=== PATIENT | female | born 2000 | race Two or more races ===

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

== ENCOUNTER 2019-04-27 01:44 | Emergency (ER) | payer MEDICAID ==
[~2019-04-27] VITALS: Ht 149.9 cm; Wt 92.1 kg
[~2019-04-27 01:44] MED LIST: CEPHALEXIN500 MG ORAL; DICLEGIS DR 101 EACH PO
[2019-04-27] MEDS ORDERED: Albuterol ud Inhalation HHN ONE (02:00)
[2019-04-27] MEDS ORDERED: PROMETHAZINE-C118 M1 ORAL (02:01)
[2019-04-27] MEDS ORDERED: ALBUTEROL SULF8.5 GM INH (02:01)
[2019-04-27] MEDS ORDERED: ZITHROMAX250 MG ORAL (02:01)
--- NOTE | 2019-04-27 02:02 | Emergency Room Report ---
History of Present Illness General Chief Complaint: Flu Like Symptoms Source: Patient Present Illness [facility] This is a 18-year-old female with no past medical history. She presents with complaint of cough congestion with nausea and vomiting for last 5 days. Fever initially but none now. Coughing to the point of vomiting. Has congestion. Worse with inspiration. Better with rest. Whole family is sick. Denies any other complaint. Allergies: Coded Allergies: No Known Allergies (Unverified , 06/25/17) Patient History Past Medical History: see triage record, old chart reviewed Past Surgical History: none Pertinent Family History: none Social History: Denies: smoking Last Menstrual Period: 04/06/19 Now: No - IUD : 1 Para: 1 Immunizations: other Reviewed Nursing Documentation: PMH: Agreed; PSxH: Agreed Nursing Documentation-PM Past Medical History: No Stated History Review of Systems Constitutional: Reports: chills, fever Eye: Denies: eye pain, blurred vision ENT: Reports: nose congestion, throat pain; Denies: ear pain, throat swelling Respiratory: Reports: cough, shortness of breath Cardiovascular: Denies: chest pain, palpitations Gastrointestinal: Denies: abdominal pain, diarrhea, nausea, vomiting Musculoskeletal: Denies: back pain, joint pain Skin: Denies: rash Neurological: Denies: headache, numbness Endocrine: Denies: increased thirst, increased urine Hematologic/Lymphatic: Denies: easy bruising All Other Systems: negative except mentioned in HPI Physical Exam Vital Signs Date Time Temp Pulse Resp B/P (MAP) Pulse Ox O2 Delivery O2 Flow Rate FiO2 04/27/19 01:47 97.2 102 18 81/64 (70) 97 Room Air Vitals with low blood pressure. Repeat is normal. Sp02 EP Interpretation: reviewed, normal General Appearance: well appearing, no apparent distress, alert Head: normocephalic, atraumatic Eyes: bilateral eye PERRL, bilateral eye EOMI ENT: hearing grossly normal, normal pharynx Neck: full range of motion, supple, no meningismus Respiratory: chest non-tender, lungs clear, normal breath sounds, decreased breath sounds, other - Coughing with inspiration Cardiovascular #1: regular rate, rhythm, no murmur Gastrointestinal: normal bowel sounds, non tender, no mass, no organomegaly, no bruit, non-distended Musculoskeletal: back normal, normal range of motion, gait/station normal Psychiatric: mood/affect normal Medical Decision Making Diagnostic Impression: Primary Impression: Influenza-like symptoms Additional Impression: Pneumonitis ER Course Patient with cough and congestion. This is most likely viral in nature. Because of the fever and productive cough, will put her on antibiotics. No evidence of ACS, PE, dissection to name a few. Last Vital Signs Date Time Temp Pulse Resp B/P (MAP) Pulse Ox O2 Delivery O2 Flow Rate FiO2 04/27/19 01:47 97.2 102 18 81/64 (70) 97 Room Air Status: improved Disposition: HOME, SELF-CARE Condition: Stable Scripts Codeine/Promethazine Hcl* (PROMETHAZINE-CODEINE SYRUP*) 118 Ml Syrup 5 ML ORAL Q6H PRN for For Cough, #120 ML 0 Refills Prov: Bry Nolan MD 04/27/19 Azithromycin* (ZITHROMAX*) 250 Mg Tablet 250 MG ORAL DAILY, #6 TAB 0 Refills Take two tables once daily for 1 day, then one tablet once daily for 4 days. Prov: Bry Nolan MD 04/27/19 Albuterol Sulfate* (ALBUTEROL SULFATE MDI*) 8.5 Gm Hfa.aer.ad 2 PUFF INH Q4H PRN for cough/wheezing, #1 EA 0 Refills Prov: Bry Nolan MD 04/27/19 Additional Instructions: Increase fluids. Follow-up with your doctor in 7 days but return if worse. Bry Nolan MD Apr 27, 2019 02:02
[2019-04-27 02:05] VITALS: BP 81/64
--- NOTE | 2019-04-27 02:05 | NUR ---
ED Nurse Note: Pt walked into ED from home accompanied by mom for c/o flu like symptoms for a couple of days. Pt reports cough, CP, n/v, dizziness and sore throat. pt is aaox4, ambulatory with steady gait. No acute distress noted.
[2019-04-27 02:35] VITALS: BP 104/85
--- NOTE | 2019-04-27 02:35 | NUR ---
ER DISCHARGE NOTE: Patient is cleared to be discharged per ERMD, pt is aox4, on room air, with stable vital signs. pt was given dc and prescription instructions, pt was able to verbalize understanding, pt id band removed. pt is able to ambulate with steady gait. pt took all belongings.
== END 2019-04-27 02:35 | disposition home or self-care (01) ==
LOC: EMR 02:03
DX: J11.00 Influenza due to unidentified influenza virus with unspecified type of pneumonia (principal)
CPT/HCPCS: 99284